=== PATIENT | female | born 1965 | race Two or more races ===

== ENCOUNTER 2021-02-09 09:36 | Outpatient (CLI) | payer OTHER | END 2021-02-09 09:56 | disposition home or self-care (01) | LOC: MAMO-SONO 09:36 | PROVIDERS: ATTEND Obstetrics & Gynecology | DX: J32.0 Chronic maxillary sinusitis (principal); J45.41 Moderate persistent asthma with (acute) exacerbation; N64.89 Other specified disorders of breast; Z12.31 Encounter for screening mammogram for malignant neoplasm of breast; N64.4 Mastodynia; J31.0 Chronic rhinitis ==

== ENCOUNTER → 2023-02-13 | Outpatient (CLI) | payer OTHER | END | disposition home or self-care (01) | LOC: MAMO-SONO 10:04 | PROVIDERS: ATTEND Obstetrics & Gynecology Gynecology | DX: Z12.31 Encounter for screening mammogram for malignant neoplasm of breast (principal); N60.19 Diffuse cystic mastopathy of unspecified breast; N64.4 Mastodynia; R92.2 Inconclusive mammogram; N63.0 Unspecified lump in unspecified breast ==

== ENCOUNTER 2023-07-29 10:55 | Emergency (ER) | payer OTHER ==
[~2023-07-29] VITALS: Ht 157.5 cm; Wt 58.1 kg
[2023-07-29] MEDS ORDERED: KETOROLAC TROMETHAMINE 60 MG VIAL IM STA (12:10)
[2023-07-29] MEDS ORDERED: OxyCODONE HCL/APAP UD (PERCOCET) PO STA (12:10)
[2023-07-29] MEDS ORDERED: ORPHENADRINE CITRATE 30 MG/ML AMPUL IM STA (12:10)
[2023-07-29] MEDS ORDERED: CELEBREX200MG PO (14:44)
== END 2023-07-29 14:52 | disposition home or self-care (01) ==
LOC: ER 10:56
DX: M75.32 Calcific tendinitis of left shoulder (principal); I10 Essential (primary) hypertension

== ENCOUNTER → 2025-04-30 09:17 | Outpatient (CLI) | payer OTHER ==
[~2025-04-30 09:17] MED LIST: CELEBREX200MG PO
== END | disposition home or self-care (01) ==
LOC: NUCLEAR 09:17
PROVIDERS: ATTEND Obstetrics & Gynecology Gynecology
DX: M81.0 Age-related osteoporosis without current pathological fracture (principal)

== ENCOUNTER 2025-04-30 14:10 | Outpatient (CLI) | payer OTHER | END 2025-04-30 14:15 | disposition home or self-care (01) | LOC: MAMO-SONO 14:10 | PROVIDERS: ATTEND Obstetrics & Gynecology Gynecology | DX: Z77.22 Contact with and (suspected) exposure to environmental tobacco smoke (acute) (chronic) (principal); N64.4 Mastodynia; N60.19 Diffuse cystic mastopathy of unspecified breast; Z12.31 Encounter for screening mammogram for malignant neoplasm of breast; N63.0 Unspecified lump in unspecified breast ==